=== PATIENT | male | born 1945 | race Caucasian/White ===

== ENCOUNTER 2017-09-20 11:00 | Outpatient (CLI) | payer MEDICARE, OTHER ==
[~2017-09-20] VITALS: Ht 162.6 cm; Wt 86.2 kg
[~2017-09-20 11:00] MED LIST: ASPI-875 PO; MSL400TEC PO; OMEG1CAP51 PO; VITA200C53 PO
[2017-09-20] MEDS ORDERED: SIMV40TA4 PO (11:05)
[2017-09-20] MEDS ORDERED: ASPI-586 PO (11:05)
[2017-09-21] MEDS ORDERED: PHEN-640 PO (10:57)
[2017-09-21] MEDS ORDERED: CIPR-225 PO (10:57)
== END 2017-09-20 11:18 ==
LOC: PREOP 11:00
PROVIDERS: ATTEND Urology
DX: Z01.818 Encounter for other preprocedural examination (principal); N20.1 Calculus of ureter

== ENCOUNTER 2017-09-21 07:22 | Day surgery (SDC) | payer MEDICARE, OTHER ==
[~2017-09-21] VITALS: Ht 162.6 cm; Wt 86.2 kg
--- NOTE | 2017-09-21 07:08 | Progress Note-Post Operative ---
Post-Operative Progess Note Surgeon (s)/Operations General Agent (s) Surgeon LAURENT KUHN MD Operations General Agent: N/A Pre-Operative Diagnosis LT URETERAL STONE Post-Operative Diagnosis SAME Procedure & Operative Findings Date of Procedure 09/21/17 Procedure Performed/Findings CYSTOSCOPY, LT URETEROSCOPY WITH STONE BASKET Anesthesia Type GENERAL Estimated Blood Loss Estimated blood loss (mL): N/A Specimens/Packing Specimens Removed N/A Packing: N/A LAURENT KUHN MD Sep 21, 2017 7:08 am
--- NOTE | 2017-09-21 07:08 | Progress Note-Pre Operative ---
Pre-Operative Progress Note H&P Reviewed The H&P was reviewed, patient examined and no changes noted. Date Seen by Provider: Sep 21, 2017 Time Seen by Provider: 07:08 Date H&P Reviewed: Sep 21, 2017 Time H&P Reviewed: 07:08 Pre-Operative Diagnosis: LT URETERAL STONE LAURENT KUHN MD Sep 21, 2017 7:08 am
--- NOTE | 2017-09-21 07:10 | Discharge Inst-Urology ---
Discharge Inst-Urology Discharge Medications New, Converted, or Re-newed RX: RX on Chart Patient Instructions/Follow Up Plan Please make appointment to been seen in office in 3 weeks. Increase oral fluids for 48 hours and then as needed. Diet and Activity as tolerated. If questions or concerns contact your physician Or seek help at emergency department. LAURENT KUHN MD Sep 21, 2017 7:10 am
[~2017-09-21 07:22] MED LIST changes: +ASPI-586 PO; +SIMV40TA4 PO
[2017-09-21] MEDS ORDERED: cefTRIAXone INJECTION 1,000 MG in D5W 50 ML IVPB SOLUTION 50 ML IV ONE (07:30)
[2017-09-21] MEDS ORDERED: LACTATED RINGERS 1,000 ML IV PRN (07:30)
[2017-09-21 07:51] VITALS: BP 158/89
[2017-09-21] MEDS ORDERED: CATHETER FLUSH 10 ML SYR IV PRN (08:00)
[2017-09-21] MEDS ORDERED: proPOfol 200 MG/20 ML (DIPRIVAN) VIAL IV ONE (08:26)
[2017-09-21] MEDS ORDERED: SEVOFLURANE (ULTANE) 15 ML INHAL SOLN ONE (08:26)
[2017-09-21] MEDS ORDERED: LIDOCAINE PF 2% 5 ML (XYLOCAINE) VIAL ONE (08:26)
[2017-09-21] MEDS ORDERED: fentaNYL INJECTION 100 MCG/2 ML AMP ONE (08:27)
[2017-09-21] MEDS ORDERED: MIDAZOLAM 2 MG/2 ML (VERSED) VIAL ONE (08:27)
[2017-09-21] MEDS ORDERED: ONDANSETRON 4 MG/2 ML (SDV) Z0FRAN ONE (08:27)
[2017-09-21] MEDS ORDERED: DEXAMETHASONE 10 MG/ML (DECADRON) 1 ML VIAL ONE (08:27)
--- NOTE | 2017-09-21 08:32 | Diagnostic Imaging Report ---
CLINICAL INDICATION: Left ureteral stone. Pre-cystoscopy. EXAMINATION: KUB x-ray. COMPARISON: None. FINDINGS: There are two calcifications in the left low pelvis region which may represent phleboliths. There is a 1.5 cm x 0.7 cm area of increased density overlying the left T11 rib which may represent a bone island or calcification involving left kidney. Correlation with CT scans would better evaluate. There are focal calcifications of the right pelvis suspect to represent phleboliths. There is a nonobstructed bowel gas pattern. There is no evidence of abdominal free air. There are hypertrophic spurs involving the visualized lower thoracic and lumbar spine. IMPRESSION: 1: Possible 1.5 cm bone island involving the left T11 rib versus calcification involving the left kidney. This should be better correlated with previous CT scans. 2: Suspected phleboliths seen in the pelvis. Dictated by: Dictated on workstation # [id number]
[2017-09-21] MEDS ORDERED: morphine INJ 10 MG/ML 1ML (SYR OR VIAL) IVP PRN (09:30)
[2017-09-21] MEDS ORDERED: ONDANSETRON 4 MG/2 ML (SDV) Z0FRAN IVP PRN (09:30)
[2017-09-21 10:20] VITALS: BP 158/84
[2017-09-21 10:50] VITALS: BP 158/86
[2017-09-21] MEDS ORDERED: PHEN-640 PO (10:57)
[2017-09-21] MEDS ORDERED: CIPR-225 PO (10:57)
[2017-09-21 11:20] VITALS: BP 160/86
--- NOTE | 2017-09-21 11:55 | OPERATIVE REPORT ---
DATE OF SERVICE: 09/21/2017 PREOPERATIVE DIAGNOSIS: Left distal ureteral stone. POSTOPERATIVE DIAGNOSIS: Left distal ureteral stone. OPERATION PERFORMED: Cystoscopy with left ureteroscopy and stone basket and retrograde urogram. SURGEON: Margarito Kuhn MD ANESTHESIA: General. COMPLICATIONS: None. DESCRIPTION OF PROCEDURE: Under satisfactory general anesthesia, the patient in lithotomy position, genitalia were prepped and draped in usual sterile fashion. Cystoscope was introduced under vision. The anterior urethra was normal. The prostate was mildly enlarged with some bladder neck obstruction. The bladder was entered and revealed mild trabeculations. Ureteric orifices normal in shape, size and configuration with clear efflux, more sluggish on the left side. Using the foroblique lens, I dilated the left ureter out of the intramural portion to accommodate a 6.9 Prydeinig semi-rigid ureteroscope. I was unable to manipulate a curve of the ureter; however, I was able to pass a 3-Prydeinig basket above the stone, engaged it, and felt that it was breaking up and I showed fragments coming out of the ureter and the basket was removed. I went ahead and performed a retrograde urogram through the ureteroscope. There was no filling defect. Then, complete immediate emptying of the ureter. I removed the ureteroscope, reinserted the cystoscope to empty the bladder. The patient tolerated the procedure and anesthesia well and was sent to recovery room in stable condition. Job ID: [id number] DocumentID: [id number] Dictated Date: 09/21/2017 09:13:48 Cmm Inspector Date: 09/21/2017 11:54:59 Dictated By: MARGARITO KUHN MD
== END 2017-09-21 11:20 | disposition home or self-care (01) ==
LOC: SDC 07:22
PROVIDERS: ATTEND Urology
DX: N20.1 Calculus of ureter (principal); Z11.2 Encounter for screening for other bacterial diseases; I25.10 Atherosclerotic heart disease of native coronary artery without angina pectoris; E78.5 Hyperlipidemia, unspecified; Z79.82 Long term (current) use of aspirin; Z95.1 Presence of aortocoronary bypass graft; Z79.899 Other long term (current) drug therapy
CPT/HCPCS: 74018; 87081

== ENCOUNTER → 2018-01-24 | Outpatient (CLI) | payer MEDICARE, OTHER ==
[~2018-01-24] MED LIST changes: +CATHETER FLUSH 10 ML SYR IV PRN; +CIPR-225 PO; +PHEN-640 PO; +REGADENOSON 0.4 MG/5 ML SYR (LEXISCAN) IV ONE
[2018-01-24 08:51] VITALS: BP 166/84
[2018-01-24 08:57] VITALS: BP 155/88
--- NOTE | 2018-01-24 17:30 | STRESS TEST ---
DATE OF SERVICE: 01/24/2018 RESTING AND POST REGADENOSON TECHNETIUM-99M TETROFOSMIN SPECT CT IMAGING ORDERING PHYSICIAN: Dr. Barrientos. CLINICAL DIAGNOSES: Coronary artery disease. Baseline images were carried out after injection of 10.54 mCi technetium-99m Tetrofosmin. This was followed by 0.4 mg regadenoson and 32.5 mCi technetium-99m Tetrofosmin. The electrocardiogram showed sinus rhythm at baseline. The electrocardiogram did not change significantly with the regadenoson infusion. The patient noted some shortness of breath following regadenoson infusion, which resolved in a few minutes. Review of images at rest and following stress does not indicate any significant perfusion defects consistent with significant myocardial ischemia or infarction. Gated images show normal global left ventricular systolic function with normal regional wall motion. Left ventricular ejection fraction calculated to be 55%. Left ventricular end diastolic volume is 68 mL. CONCLUSIONS: 1. No evidence of any significant myocardial ischemia or infarction is seen. 2. Normal regional wall motion. 3. Normal global left ventricular systolic function with a calculated ejection fraction of 55%. Job ID: [id number] DocumentID: [id number] Dictated Date: 01/24/2018 16:27:51 Joint Cleaning Machine Operator Date: 01/24/2018 17:29:49 Dictated By: MILLY BARRIENTOS MD, MA, FACP, FACC, MTDD
== END ==
LOC: CARD 07:34
PROVIDERS: ATTEND Internal Medicine Cardiovascular Disease
DX: I25.10 Atherosclerotic heart disease of native coronary artery without angina pectoris (principal); E78.5 Hyperlipidemia, unspecified; E66.9 Obesity, unspecified
CPT/HCPCS: 78452; 93017

== ENCOUNTER → 2020-02-04 | Outpatient (CLI) | payer MEDICARE, OTHER ==
[~2020-02-04] MED LIST changes: -CATHETER FLUSH 10 ML SYR IV PRN; -REGADENOSON 0.4 MG/5 ML SYR (LEXISCAN) IV ONE; +SIMV40TA25 PO; -SIMV40TA4 PO
--- NOTE | 2020-02-04 17:51 | Diagnostic Imaging Report ---
INDICATION: Right shoulder pain COMPARISON: None. FINDINGS: 3 views of the right shoulder were obtained. There is no fracture, dislocation, or other acute bony abnormality identified. There is mild narrowing of the acromiohumeral joint space. The soft tissues appear unremarkable. No radiopaque foreign bodies identified. The visualized portions of the right lung are clear. IMPRESSION: 1. No acute fractures or dislocations of the right shoulder. 2. Mildly narrowed appearance to the acromiohumeral joint space. Findings can be seen with chronic rotator cuff tear. Dictated by: Dictated on workstation # [id number]
== END ==
LOC: RAD FS 15:26
PROVIDERS: ATTEND Nurse Practitioner
DX: M25.511 Pain in right shoulder (principal)
CPT/HCPCS: 73030

== ENCOUNTER → 2020-12-24 | Outpatient (CLI) | payer MEDICARE, OTHER | LOC: CARD 14:38 | PROVIDERS: ATTEND Nurse Practitioner Family | DX: I11.9 Hypertensive heart disease without heart failure (principal) | CPT/HCPCS: 93306 ==

== ENCOUNTER → 2020-12-26 | Outpatient (CLI) | payer MEDICARE, OTHER ==
[~2020-12-26] VITALS: Ht 160 cm; Wt 83.0 kg
[~2020-12-26] MED LIST changes: +CATHETER FLUSH 10 ML SYR IV PRN; +REGADENOSON 0.4 MG/5 ML SYR (LEXISCAN) IV ONE
[2020-12-26 08:56] VITALS: BP 168/90
--- NOTE | 2020-12-29 14:40 | STRESS TEST ---
DATE OF SERVICE: 12/26/2020 RESTING AND POST REGADENOSON TECHNETIUM-99M TETROFOSMIN SPECT CT IMAGING ORDERING PHYSICIAN: Luz Bey APRN PRIMARY PHYSICIAN: Dr. Fofana. CLINICAL DIAGNOSIS: Abnormal electrocardiogram. Baseline images were carried out after injection of 10.57 mCi of technetium-99m Tetrofosmin. This was followed by 0.4 mg regadenoson and 32.5 mCi of technetium-99m Tetrofosmin for stress imaging. The electrocardiogram did not change significantly. The patient tolerated the procedure well. Review of images at rest and following stress does not indicate any distinct evidence of ischemia. Gated images show normal global left ventricular systolic function with normal regional wall motion. Left ventricular ejection fraction is calculated to be 62%. Left ventricular end diastolic volume is 78 mL. TID is absent (1.07). CONCLUSIONS: 1. No evidence of any significant myocardial ischemia or infarction. 2. Normal regional wall motion. 3. Normal global left ventricular systolic function with a calculated ejection fraction of 62%. Job ID: [id number] DocumentID: [id number] Dictated Date: 12/29/2020 10:15:20 Minister Assistant Date: 12/29/2020 14:40:06 Dictated By: MILLY MCGOWAN MD, MA, FACP, FACC,
== END ==
LOC: CARD 08:15
PROVIDERS: ATTEND Nurse Practitioner Family
DX: R94.31 Abnormal electrocardiogram [ECG] [EKG] (principal)
CPT/HCPCS: 78452; 93017; A9502

== ENCOUNTER 2023-03-22 05:31 | Outpatient (CLI) | payer MEDICARE, OTHER ==
[~2023-03-22] VITALS: Ht 160 cm; Wt 80.6 kg
[~2023-03-22 05:31] MED LIST changes: -CATHETER FLUSH 10 ML SYR IV PRN; -REGADENOSON 0.4 MG/5 ML SYR (LEXISCAN) IV ONE
[2023-03-22] MEDS ORDERED: ATOR40TA70 PO (08:32)
== END 2023-03-22 08:37 | disposition home or self-care (01) ==
LOC: PREOP 05:31
PROVIDERS: ATTEND Surgery
DX: Z01.818 Encounter for other preprocedural examination (principal)

== ENCOUNTER 2023-03-23 12:54 | Day surgery (SDC) | payer MEDICARE, OTHER ==
[~2023-03-23] VITALS: Ht 160 cm; Wt 80.6 kg
[~2023-03-23 12:54] MED LIST changes: +ATOR40TA70 PO
[2023-03-23] MEDS ORDERED: LACTATED RINGERS 1,000 ML IV STA (13:03)
[2023-03-23] MEDS ORDERED: LIDOCAINE JELLY 2% 6 ML SYRINGE MM PRN (13:15)
[2023-03-23] MEDS ORDERED: LIDOCAINE JELLY 2% 6 ML SYRINGE ONE (13:26)
--- NOTE | 2023-03-23 13:42 | Progress Note-Pre Operative ---
Pre-Operative Progress Note Date of Available H&P: Mar 23, 2023 Date H&P Reviewed: Mar 23, 2023 Time H&P Reviewed: 13:00 History & Physical: No changes noted Pre-Operative Diagnosis: screening HARPREET DANIEL MD Mar 23, 2023 13:42
[2023-03-23 13:45] VITALS: BP 172/82
[2023-03-23] MEDS ORDERED: ONDANSETRON 4 MG (ZOFRAN) ORAL DISSOLVE TAB PO PRN (13:45)
[2023-03-23] MEDS ORDERED: ONDANSETRON 4 MG/2 ML (SDV) Z0FRAN IVP PRN (13:45)
--- NOTE | 2023-03-23 13:45 | Discharge Inst-Surgical ---
D/C Lap Instructions-KIDO New, Converted, or Re-Newed RX: RX on Chart Follow Up Activity as tolerated High Fiber Diet 25g or more per day Avoid Alcohol, Caffeine, Spicy [place] and Acid foods. Drink 64 fluid oz or more of fluids per day. Symptoms to Report: Fever over 101 degree F, Nausea/Vomiting If any problems/questions: Contact your physician or go to Emergency Room HARPREET ADNIEL MD Mar 23, 2023 13:45
[2023-03-23] MEDS ORDERED: PROPOFOL INJECTION 50 ML IV ONE ×2 (14:38→15:31)
[2023-03-23 15:50] VITALS: BP 116/71
--- NOTE | 2023-03-23 15:50 | Anesthesia-General Post-Op ---
MAC Patient Condition Mental Status/LOC: Same as Preop Cardiovascular: Satisfactory Nausea/Vomiting: Absent Respiratory: Satisfactory Pain: Controlled Complications: Absent Post Op Complications Complications None Follow Up Care/Instructions Patient Instructions None needed. Anesthesiology Discharge Order Discharge Order Patient is doing well, no complaints, stable vital signs, no apparent adverse anesthesia problems. No complications reported per nursing. MIKAYLA PFEIFFER CRNA Mar 23, 2023 15:50
[2023-03-23 15:55] VITALS: BP 107/89
--- NOTE | 2023-03-23 16:27 | Progress Note-Post Operative ---
Post-Operative Progess Note Surgeon (s)/Coiler (s) Surgeon HARPREET DANIEL MD Coiler: none Pre-Operative Diagnosis screening Post-Operative Diagnosis chronic stage 2 ext and int hemorrhoids, moderate sigmoid diverticulosis, small HP polyps transverse colon. Procedure & Operative Findings Date of Procedure 03/23/23 Procedure Performed/Findings colonoscopy with bx. Anesthesia Type mac Estimated Blood Loss Estimated blood loss (mL): minimal Specimens/Packing Specimens Removed transverse colon polyp HARPREET DANIEL MD Mar 23, 2023 16:27
[2023-03-23 16:30] VITALS: BP 138/82
[2023-03-23 16:35] VITALS: BP 138/82
--- NOTE | 2023-03-23 20:01 | OPERATIVE REPORT ---
DATE OF SERVICE: 03/23/2023 ATTENDING PRIMARY CARE PHYSICIAN: Dr. Fofana. PREOPERATIVE DIAGNOSIS: Screening colonoscopy. POSTOPERATIVE DIAGNOSES: Chronic stage II external and internal hemorrhoids, moderate sigmoid diverticulosis, transverse colonic small finger-like polyps. PROCEDURE: Colonoscopy with biopsy. SURGEON: Harpreet Daniel MD ANESTHESIA: Monitored anesthesia care. ESTIMATED BLOOD LOSS: Minimal. FINDINGS: Chronic stage II external and internal hemorrhoids, moderate sigmoid diverticulosis, transverse colonic small finger-like polyps. DISPOSITION: The patient tolerated the procedure well. INDICATIONS: The patient is an 78-year-old male who was referred over to us for screening colonoscopy. His last colonoscopy was approximately in 2009 and he believes this to be normal. He does not report any major issues with diarrhea, nor constipation as well as no red blood per rectum, nor any dark tarry stools. He also does not report any family history of colon cancer. He does have a personal history of prostate cancer and did underwent a prostatectomy in 2012. DESCRIPTION OF PROCEDURE: The patient was brought to the endoscopy suite and laid in the left lateral decubitus position. After adequate IV pain and sedative medications and monitored anesthesia care, a digital rectal examination was performed. Chronic stage II external and internal hemorrhoids were identified, which were not actively edematous nor inflamed and no bleeding. Normal sphincter tone was felt and there were no palpable masses. The endoscope was then intubated into the anus, rectum gently insufflated. The endoscope was then advanced through the valves of Rogers of the rectum with no polyps or any neoplasms identified. Through the sigmoid colon, a moderate sigmoid diverticulosis identified. The endoscope was then advanced to the remainder of the descending and transverse colon. At the level of the transverse colon, there were multiple small frond or finger-like projections, which appeared to be small polyps. A few of these were taken with biopsy forceps and electrocautery with visualization of good hemostasis. The endoscope was then advanced to the remainder of the descending, transverse and ascending colon to the cecum, which were normal. No other lesions identified. The endoscope was then slowly withdrawn while taking a second look and suctioning of residual air with no additional findings. The patient tolerated the procedure well. We will recommend the necessary lifestyle and dietary accommodation including a high-fiber diet with incorporation of a fiber supplement, which should equal or exceed 30 grams daily as well as significant amounts of water to promote soft consistency stools on a daily basis. We will also have him follow up in 2 weeks to discuss the pathology results and if these are benign and do not have any malignancy potential or adenomatous polyps without any component of villous adenoma, then he may wait 10 years for his next colonoscopy. Job ID: [id number] DocumentID: [id number] Dictated Date: 03/23/2023 15:51:08 Cardiac Nurse Date: 03/23/2023 19:59:00 Dictated By: HARPREET DANIEL MD [facility]
== END 2023-03-23 16:35 | disposition home or self-care (01) ==
LOC: ENDO 12:54
PROVIDERS: ATTEND Surgery
DX: Z12.11 Encounter for screening for malignant neoplasm of colon (principal); K63.5 Polyp of colon; K57.30 Diverticulosis of large intestine without perforation or abscess without bleeding; K52.9 Noninfective gastroenteritis and colitis, unspecified; K63.89 Other specified diseases of intestine; K64.1 Second degree hemorrhoids; K64.4 Residual hemorrhoidal skin tags; Z85.46 Personal history of malignant neoplasm of prostate; Z95.1 Presence of aortocoronary bypass graft; Z87.19 Personal history of other diseases of the digestive system